=== PATIENT | male | born 1985 | race Caucasian/White ===

== ENCOUNTER 2016-10-30 17:35 | Emergency (ER) | payer BC ==
[2016-10-30] MEDS ORDERED: Ciprofloxacin 0.3% OPTH.SOL* 2.5 ML BTL RIGHT EYE ONE (19:43)
--- NOTE | 2016-10-30 19:52 | UC ---
Throat Pain/Nasal Umberto HPI - HPI Summary HPI Summary: Had started with a cold two weeks ago that was getting better. Four days ago, a sore throat started. He was concerned that it may be strep throat. Has also had a red eye with crusty drainage for the past three mornings. Used Clear Eyes with little relief. 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 - History of Current Complaint Chief Complaint: UCGeneralIllness Stated Complaint: SORE THROAT Time Seen by Provider: 10/30/16 18:42 Hx Obtained From: Patient Onset/Duration: Gradual Onset, Lasting Days Severity: Mild Cough: None Associated Signs & Symptoms: Positive: Other - red left eye with crusty drainage in the morning - Allergies/Home Medications Allergies/Adverse Reactions: Allergies Allergy/AdvReac Type Severity Reaction Status Date / Time bee stings Allergy Swelling Uncoded 10/30/16 18:43 Home Medications: Home Medications Phenylephrine-Chlorpheniramine [Beryl-[place] Plus Cold &] 1 cap PO Q6H PRN 10/30 [History Confirmed 10/30/16] PMH/Surg Hx/FS Hx/Imm Hx Previously Healthy: Yes Endocrine History Of: Denies: Diabetes, Thyroid Disease Cardiovascular History Of: Reports: Hypertension Denies: Cardiac Disorders Respiratory History Of: Denies: COPD, Asthma GI/ History Of: Denies: Ulcer - Surgical History Surgical History: None - Family History Known Family History: Positive: None - Social History Occupation: Employed Full-time Alcohol Use: None Substance Use Type: None Smoking Status (MU): Never Smoked Tobacco Type: Cigarettes Amount Used/How Often: SMOKES OCCASIONALLY - Immunization History Most Recent Tetanus Shot: WITH IN 5 YEARS Review of Systems Constitutional: Negative Skin: Negative Eyes: Drainage, Eye Redness ENT: Sore Throat Respiratory: Negative Cardiovascular: Negative Gastrointestinal: Negative Genitourinary: Negative Motor: Negative Neurovascular: Negative Musculoskeletal: Negative Neurological: Negative Psychological: Negative All Other Systems Reviewed And Are Negative: Yes Physical Exam Triage Information Reviewed: Yes Appearance: Well-Appearing, No Pain Distress, Obese Vital Signs: Initial Vital Signs Temp 99.0 F 10/30/16 18:45 Pulse 89 10/30/16 18:45 Resp 16 10/30/16 18:45 BP 184/84 10/30/16 18:45 Pulse Ox 99 10/30/16 18:45 Vital Signs Reviewed: Yes Eye Exam: Other - red left eye Eyes: Positive: Conjunctiva Inflamed - left ENT Exam: Normal ENT: Positive: Normal ENT inspection, Pharynx normal, TMs normal. Negative: Nasal congestion, Nasal drainage, Tonsillar swelling, Tonsillar exudate Neck exam: Normal Neck: Positive: Supple, Nontender, No Lymphadenopathy Respiratory Exam: Normal Respiratory: Positive: Chest non-tender, Lungs clear, Normal breath sounds, No respiratory distress. Negative: Crackles, Rhonchi, Stridor, Wheezing Cardiovascular Exam: Normal Cardiovascular: Positive: RRR, No Murmur Musculoskeletal Exam: Normal Musculoskeletal: Positive: Strength Intact Neurological Exam: Normal Neurological: Positive: Alert, Muscle Tone Normal Psychological Exam: Normal Psychological: Positive: Age Appropriate Behavior Skin Exam: Normal Skin: Negative: rashes Throat Pain/Nasal Course/Dx - Differential Dx/Diagnosis Provider Diagnoses: sore throat. R eye conjunctivitis Discharge - Discharge Plan Condition: Stable Disposition: HOME Prescriptions: Ciprofloxacin 0.3% OPTH.MARV* [Cipro 0.3% Opth*] 2 drop LEFT EYE QID #5 ml Patient Education Materials: Conjunctivitis (ED), Pharyngitis (ED) Referrals: Anuj Toure MD [Primary Care Provider] - If Needed Additional Instructions: Call or return if you develop increasing fever, shortness of breath, chest pain , bloody sputum, or otherwise worsen. If you have not improved at all after several days, contact your primary care physician or return here.
[2016-10-30 20:24] VITALS: BP 172/89
== END 2016-10-30 21:15 | disposition home or self-care (01) ==
LOC: UCCORT 17:35
DX: J02.9 Acute pharyngitis, unspecified (principal); H10.31 Unspecified acute conjunctivitis, right eye; Z72.0 Tobacco use
CPT/HCPCS: 87651; 99212; A9270-GY; G0463

== ENCOUNTER 2017-04-30 13:25 | Emergency (ER) | payer BC ==
[2017-04-30 13:41] VITALS: BP 136/68
--- NOTE | 2017-04-30 14:03 | UC ---
Lower Extremity/Ankle HPI - HPI Summary HPI Summary: Pain on L lateral foot starting yesterday. Today more painful and swollen. Feels sharp sensation with pushing off foot during normal gait. No hx gout, no trauma, no PW or fever. - History of Current Complaint Chief Complaint: UCLowerExtremity Stated Complaint: FOOT PAIN Time Seen by Provider: 04/30/17 13:49 Hx Obtained From: Patient Onset/Duration: Gradual Onset, Lasting Days Severity Initially: Mild Severity Currently: Moderate Aggravating Factor(s): Standing, Ambulation Alleviating Factor(s): Rest Able to Bear Weight: Yes - Risk Factors Gout Risk Factors: Male, Hypertension, Obesity - Allergies/Home Medications Allergies/Adverse Reactions: Allergies Allergy/AdvReac Type Severity Reaction Status Date / Time bee stings Allergy Swelling Uncoded 10/30/16 18:43 PMH/Surg Hx/FS Hx/Imm Hx Cardiovascular History: Hypertension - Surgical History Surgical History: None - Family History Known Family History: Positive: Hypertension - Social History Occupation: Employed Full-time - drives ambulance. Lives: With Family Alcohol Use: Occasionally Substance Use Type: None Smoking Status (MU): Current Some Day Smoker Type: Cigarettes Amount Used/How Often: SMOKES OCCASIONALLY - Immunization History Most Recent Tetanus Shot: WITH IN 5 YEARS Review of Systems Constitutional: Negative Skin: Negative Eyes: Negative ENT: Negative Respiratory: Negative Cardiovascular: Negative Gastrointestinal: Negative Genitourinary: Negative Motor: Negative Neurovascular: Negative Musculoskeletal: Arthralgia Neurological: Negative Psychological: Negative All Other Systems Reviewed And Are Negative: Yes Physical Exam Triage Information Reviewed: Yes Appearance: No Pain Distress, Obese Vital Signs: Initial Vital Signs Temp 98.4 F 04/30/17 13:36 Pulse 77 04/30/17 13:36 Resp 18 04/30/17 13:36 BP 136/68 04/30/17 13:36 Pulse Ox 99 04/30/17 13:36 Vital Signs Reviewed: Yes Eye Exam: Normal Eyes: Positive: Conjunctiva Clear ENT Exam: Normal ENT: Positive: Normal ENT inspection, Hearing grossly normal, Pharynx normal, TMs normal. Negative: Tonsillar swelling, Tonsillar exudate Dental Exam: Normal Neck exam: Normal Neck: Positive: Supple, Nontender, No Lymphadenopathy Respiratory Exam: Normal Respiratory: Positive: Chest non-tender, Lungs clear, Normal breath sounds, No respiratory distress, No accessory muscle use Cardiovascular Exam: Normal Cardiovascular: Positive: RRR, No Murmur Musculoskeletal Exam: Other - tenderness over lateral ligaments on L foot/ankle Musculoskeletal: Positive: Strength Intact, ROM Intact Neurological Exam: Normal Neurological: Positive: Alert Psychological Exam: Normal Skin Exam: Normal Lower Extremity Course/Dx - Differential Dx/Diagnosis Provider Diagnoses: L foot/ankle lateral ligaments overuse tendinitis Discharge - Discharge Plan Condition: Stable Disposition: HOME Patient Education Materials: Tendinitis (ED) Referrals: Anuj Toure MD [Primary Care Provider] - Additional Instructions: OVERUSE SYNDROME: Overuse syndrome is inflammation caused by repeated activity. Many daily activities cause minor, microscopic injury to muscles, tendons, and ligaments. With adequate rest, the tissues repair themselves. But sometimes a repetitive movement or new activity is too much for the tissue to tolerate, and inflammation results. Examples of overuse syndrome are tendonitis, bursitis, muscle inflammation, and joint capsulitis. Rest. Stop or decrease the activity that created the problem. You may need a sling or splint. For the first couple of days after symptoms begin, ice packs can be helpful. When the symptoms start improving, you can switch to hot packs followed by stretching and motion of the painful area. Antiinflammatory medicine such as ibuprofen can help. Call or return if there is fever, increasing pain, spreading redness, numbness, weakness, or other significant change. USE THE SPLINT LONG IT IS HELPFUL -- IF IT IS NOT MAKING YOUR SYMPTOMS WORSE, TRY TO KEEP IT ON FOR AT LEAST A WEEK. TAKE 600mg IBUPROFEN THREE TIMES PER DAY. IF NO BETTER WITH 2 WEEKS OF REST, SEE YOUR PRIMARY CARE PROVIDER OR A PASSENGER SERVICE AGENT.
--- NOTE | 2017-04-30 14:34 | RAD ---
HISTORY: Left foot pain COMPARISONS: December 05, 2003 VIEWS: 3, Frontal, lateral, and oblique views of the left foot FINDINGS: BONE DENSITY: Normal. BONES: There is no displaced fracture. There are posterior calcaneal enthesophytes JOINTS: There is no arthropathy. ALIGNMENT: There is mild hallux valgus. SOFT TISSUES: Unremarkable. OTHER FINDINGS: None. IMPRESSION: NO ACUTE OSSEOUS INJURY. IF SYMPTOMS PERSIST, RECOMMEND REPEAT IMAGING.
== END 2017-04-30 15:17 | disposition home or self-care (01) ==
LOC: UCEAST 13:25
DX: M70.872 Other soft tissue disorders related to use, overuse and pressure, left ankle and foot (principal); Y93.9 Activity, unspecified; I10 Essential (primary) hypertension; E66.9 Obesity, unspecified; Z91.030 Bee allergy status; Z72.0 Tobacco use
CPT/HCPCS: 99213; G0463

== ENCOUNTER 2018-08-29 07:04 | Emergency (ER) | payer BC ==
[2018-08-29 07:20] VITALS: BP 166/87
--- NOTE | 2018-08-29 08:10 | UC ---
Throat Pain/Nasal Umberto HPI - HPI Summary HPI Summary: The patient is a 32-year-old male that presents here with a 4-5 day history of moderate to severe sore throat. He has had no fever or chills. He denies any URI symptoms. About a week to 10 days ago he finished a course of Augmentin he was taking for a sinus infection. He denies any chest pain or shortness of breath. - History of Current Complaint Chief Complaint: UCGeneralIllness Stated Complaint: SORE THROAT Time Seen by Provider: 08/29/18 07:41 Hx Obtained From: Patient Onset/Duration: Gradual Onset, Lasting Days Severity: Moderate Pain Intensity: 6 Pain Scale Used: 0-10 Numeric Related History: T & A - Epiglottits Risk Factors Epiglottis Risk Factors: Negative - Allergies/Home Medications Allergies/Adverse Reactions: Allergies Allergy/AdvReac Type Severity Reaction Status Date / Time bee venom protein (honey bee) Allergy Swelling Verified 08/29/18 07:17 Of Face,Lips,& Throat Home Medications: Home Medications Lisinopril TAB* [Prinivil TAB*] 20 mg PO DAILY 08/29/18 [History Confirmed 08/29] PMH/Surg Hx/FS Hx/Imm Hx Previously Healthy: Yes Cardiovascular History: Hypertension - Surgical History Surgical History: None - Family History Known Family History: Positive: Hypertension - Social History Alcohol Use: Occasionally Substance Use Type: None Smoking Status (MU): Former Smoker Type: Cigarettes Amount Used/How Often: SMOKES OCCASIONALLY Length of Time of Smoking/Using Tobacco: <3/4 PPD x 15 Years When Did the Patient Quit Smoking/Using Tobacco: ~02/2017 - Immunization History Most Recent Tetanus Shot: WITH IN 5 YEARS Review of Systems All Other Systems Reviewed And Are Negative: Yes Constitutional: Positive: Negative Skin: Positive: Negative Eyes: Positive: Negative ENT: Positive: Sore Throat Respiratory: Positive: Negative Cardiovascular: Positive: Negative Gastrointestinal: Positive: Negative Genitourinary: Positive: Negative Motor: Positive: Negative Neurovascular: Positive: Negative Musculoskeletal: Positive: Negative Neurological: Positive: Negative Psychological: Positive: Negative Physical Exam Triage Information Reviewed: Yes Appearance: Well-Appearing, No Pain Distress, Well-Nourished Vital Signs: Initial Vital Signs Temp 98.3 F 08/29/18 07:15 Pulse 72 08/29/18 07:15 Resp 18 08/29/18 07:15 BP 166/87 08/29/18 07:15 Pulse Ox 98 08/29/18 07:15 Vital Signs Reviewed: Yes Eyes: Positive: Conjunctiva Clear ENT: Positive: Hearing grossly normal, Pharyngeal erythema, Uvula midline. Negative: Nasal congestion, Nasal drainage, Tonsillar swelling, Tonsillar exudate, Trismus, Muffled voice, Hoarse voice, Sinus tenderness Neck: Positive: Supple, Enlarged Nodes @ - tender right ant cervical LN Respiratory: Positive: Lungs clear, Normal breath sounds, No respiratory distress, No accessory muscle use Cardiovascular: Positive: RRR, No Murmur Diagnostics - Laboratory Diagnostic Studies Completed/Ordered: strep (-) Throat Pain/Nasal Course/Dx - Differential Dx/Diagnosis Provider Diagnosis: Pharyngitis, Lymphadenopathy of right cervical region Discharge - Sign-Out/Discharge Documenting (check all that apply): Patient Departure All imaging exams completed and their final reports reviewed: No Studies - Discharge Plan Condition: Stable Disposition: HOME Patient Education Materials: Pharyngitis (ED) Referrals: Anuj Toure MD [Primary Care Provider] - 2 Weeks (recheck in 2-3 weeks if swollen right sided cervical lymphnode is still present) Additional Instructions: you strep test is pending a complete blood count and mono test is pending recheck for new or worsening symptoms tylenol or aleve for pain recheck in 4-6 days if not better if lymphnode on the right side of your neck is still swollen and tender in 2-3 weeks it needs to get rechecked - Billing Disposition and Condition Condition: STABLE Disposition: Home
[2018-08-29 10:18] LABS: Hematocrit 43 % (42-52); Hemoglobin 14.6 g/dl (14.0-18.0); Mean Corpuscular HGB Conc 34 g/dl (31-36); Mean Corpuscular Hemoglobin 30 pg (27-31); Mean Corpuscular Volume 87 fL (80-94); Mean Platelet Volume 8.4 fL (7.4-10.4); Platelet Count 289 10^3/ul (150-450); Red Blood Count 4.96 10^6/ul (4.00-5.40); Red Cell Distribution Width 14 % (10.5-15); White Blood Count 10.8 10^3/ul (3.5-10.8)
== END 2018-08-29 08:28 | disposition home or self-care (01) ==
LOC: UCCORT 07:04
DX: J02.9 Acute pharyngitis, unspecified (principal); R59.1 Generalized enlarged lymph nodes; Z87.891 Personal history of nicotine dependence; I10 Essential (primary) hypertension
CPT/HCPCS: 36415; 85027; 86308; 87651; 99211; G0463

== ENCOUNTER 2021-01-01 10:39 | Inpatient (IN) ==
[~2021-01-01 10:39] MED LIST: Buffered Lidocaine 1% SYRIN 1 ml INTRADERM ONE; Dexamethasone IV 4 MG/ML VIAL 1 ml VIAL ONE; Glycopyrrolate IV 0.2 MG/ML 1 ML VIAL ONE; HYDROmorphone 1 MG/1 ML SYRINGE ONE; Lactated Ringers 1000 ml BAG 1,000 ML IV SCH; Lidocaine 2% PF 5 ML VIAL ONE; Midazolam 2 mg/2 ml VIAL 1 mg/ml 2 ml VIAL (2 mg) ONE; Ondansetron 4 mg VIAL 2 MG/ML 2 ml VIAL ONE; Phenylephrine IV 10 MG/ML 1 ml VIAL ONE; Propofol 10 MG/ML 20 ML BTL ONE; Rocuronium 50 mg VIAL 10 mg/ml 5 ml VIAL (50 mg) ONE
[2021-01-01] MEDS ORDERED: Heparin 5000 UNITS/ML 1 mL VIAL ONE (10:52)
[2021-01-01] MEDS ORDERED: ceFAZolin 2 GM PREMIX 2 GM/50 ML BAG ONE (10:52)
[2021-01-01] MEDS ORDERED: ceFAZolin 1 GM ADVAN 1 GM ADDV.VIAL IVPB ONE (10:52)
[2021-01-01] MEDS ORDERED: Buffered Lidocaine 1% SYRIN 1 ml INTRADERM ONE (10:53)
[2021-01-01] MEDS ORDERED: Methylene Blue 0.5 % 50 MG/10 ML AMP IV ONE (11:37)
[2021-01-01] MEDS ORDERED: Rocuronium 50 mg VIAL 10 mg/ml 5 ml VIAL (50 mg) ONE ×2 (12:36→13:22)
[2021-01-01] MEDS ORDERED: EPHEDrine (Pressors) 50 MG/ML VIAL ONE (12:46)
[2021-01-01] MEDS ORDERED: fentaNYL 100 mcg/2 ml 50 MCG/ML VIAL ONE ×2 (13:09→15:57)
[2021-01-01] MEDS ORDERED: Propofol 10 MG/ML 20 ML BTL ONE (15:05)
[2021-01-01] MEDS ORDERED: diPHENhydraMINE IV 50 MG/ML 1 ml VIAL (BENADRYL) IV PRN (15:13)
[2021-01-01] MEDS ORDERED: Naloxone 0.4 mg VIAL 0.4 mg/ml 1 ml VIAL IV PRN (15:13)
[2021-01-01] MEDS ORDERED: Ondansetron 4 mg VIAL 2 MG/ML 2 ml VIAL IV PRN (15:24)
[2021-01-01] MEDS ORDERED: HYDROcodone/ACET. 7.5/325 LIQ 15 ML UDC PO PRN (15:24)
[2021-01-01] MEDS: fentaNYL 100 mcg/2 ml 50 MCG/ML VIAL IV PRN ×2 (15:58→16:32)
[2021-01-01] MEDS ORDERED: HYDROmorphone 1 MG/1 ML SYRINGE ONE (16:33)
[2021-01-01] MEDS: HYDROmorphone 1 MG/1 ML SYRINGE IV PRN ×2 (16:37→16:54)
[2021-01-01] MEDS ORDERED: Ondansetron 4 mg VIAL 2 MG/ML 2 ml VIAL ONE (16:56)
[2021-01-01] MEDS: Lactated Ringers 1000 ml BAG 1,000 ML IV SCH (17:53)
[2021-01-01] MEDS: HYDROmorphone 0.5 MG/0.5 ML SYRINGE IV SLOW PU PRN (17:53)
[2021-01-01] MEDS: Heparin 5000 UNITS/ML 1 mL VIAL SUBCUT SCH (22:15)
[2021-01-02] MEDS: Lactated Ringers 1000 ml BAG 1,000 ML IV SCH ×3 (00:44→14:14)
[2021-01-02] MEDS: HYDROmorphone 0.5 MG/0.5 ML SYRINGE IV SLOW PU PRN (03:20)
[2021-01-02] MEDS: Heparin 5000 UNITS/ML 1 mL VIAL SUBCUT SCH ×3 (05:40→21:34)
[2021-01-02] MEDS: D5W 1/2 NS KCl 20 meq 1000 ml 1,000 ML IV SCH (18:07)
[2021-01-03] MEDS: D5W 1/2 NS KCl 20 meq 1000 ml 1,000 ML IV SCH ×2 (02:09→10:05)
[2021-01-03] MEDS: Heparin 5000 UNITS/ML 1 mL VIAL SUBCUT SCH (06:10)
[2021-01-03 11:25] VITALS: BP 143/78
== END 2021-01-03 14:30 | disposition home or self-care (01) ==
LOC: AA 10:39 → SSU 15:24
PROVIDERS: ADMIT Surgery; ATTEND Surgery